=== PATIENT | male | born 1955 | race Hispanic/Latino ===

== ENCOUNTER → 2019-09-02 | Outpatient (CLI) | payer OTHER | END | disposition home or self-care (01) | LOC: RAH 08:44 | PROVIDERS: ATTEND Internal Medicine Gastroenterology | DX: K21.9 Gastro-esophageal reflux disease without esophagitis (principal); K31.5 Obstruction of duodenum | CPT/HCPCS: 74240 ==

== ENCOUNTER → 2019-09-30 | Outpatient (CLI) | payer OTHER ==
[2019-09-30 12:36] LABS: CREATININE 3.4 mg/dL (0.5-1.5)
--- NOTE | 2019-09-30 16:55 | NUR ---
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 I also called scheduling and advised Salvador of procedure being cancelled.
== END | disposition home or self-care (01) ==
LOC: LAB 11:26
PROVIDERS: ATTEND Internal Medicine Gastroenterology
DX: K31.5 Obstruction of duodenum (principal)
CPT/HCPCS: 36415; 82565; 84520